=== PATIENT | male | born 1930 | race Caucasian/White ===

== ENCOUNTER → 2017-06-14 | Outpatient (CLI) | payer MEDICARE, OTHER | END | disposition home or self-care (01) | LOC: PCVCIMAG 15:36 | DX: I08.3 Combined rheumatic disorders of mitral, aortic and tricuspid valves (principal); I10 Essential (primary) hypertension; R60.9 Edema, unspecified; Z79.899 Other long term (current) drug therapy | CPT/HCPCS: 93005; 93306; G0463 ==

== ENCOUNTER → 2017-06-14 | Outpatient (CLI) | payer MEDICARE, OTHER | END | disposition home or self-care (01) | LOC: PCVCCLINIC 15:27 | DX: I10 Essential (primary) hypertension (principal); R60.9 Edema, unspecified; R94.31 Abnormal electrocardiogram [ECG] [EKG] | CPT/HCPCS: 93005; G0463 ==